=== PATIENT | female | born 1995 | race Caucasian/White ===

== ENCOUNTER 2017-10-30 15:23 | Emergency (ER) | payer OTHER, MEDICAID ==
[~2017-10-30] VITALS: Ht 162.6 cm; Wt 65.8 kg
[~2017-10-30 15:23] MED LIST: CARAFATE 1 GM TA1 GM PO; COMPAZINE10 MG PO; FLEXERIL PO; HYDROCODON-ACE1 EAC7 PO; PREVACID 24HR15 MG PO
[2017-10-30] MEDS ORDERED: PHENERGAN 25 MG25 M1 PO (15:54)
[2017-10-30 16:49] VITALS: BP 144/70
== END 2017-10-30 16:50 | disposition home or self-care (01) ==
LOC: M.ERS 15:23
DX: O26.891 Other specified pregnancy related conditions, first trimester (principal); R20.0 Anesthesia of skin; G43.909 Migraine, unspecified, not intractable, without status migrainosus; Z3A.14 14 weeks gestation of pregnancy; Z88.1 Allergy status to other antibiotic agents; Z90.49 Acquired absence of other specified parts of digestive tract

== ENCOUNTER 2017-12-10 19:26 | Emergency (ER) | payer OTHER, MEDICAID ==
[~2017-12-10] VITALS: Ht 162.6 cm; Wt 59.0 kg
[~2017-12-10 19:26] MED LIST changes: +PHENERGAN 25 MG25 M1 PO
[2017-12-10 19:54] VITALS: BP 97/56
== END 2017-12-10 19:57 | disposition home or self-care (01) ==
LOC: M.ERS 19:26
DX: M25.512 Pain in left shoulder (principal); G43.909 Migraine, unspecified, not intractable, without status migrainosus; Z90.49 Acquired absence of other specified parts of digestive tract; Z88.1 Allergy status to other antibiotic agents; Z88.8 Allergy status to other drugs, medicaments and biological substances

== ENCOUNTER 2018-01-03 12:28 | Emergency (ER) | payer OTHER, MEDICAID ==
[~2018-01-03] VITALS: Ht 162.6 cm; Wt 62.6 kg
[2018-01-03] MEDS ORDERED: DICLEGIS DR 101 EACH PO (12:40)
[2018-01-03] MEDS ORDERED: BENTYL 20 MG TA20 M1 PO (12:40)
[2018-01-03 12:56] LABS: ABSOLUTE BASOPHILS 0.1 thou/uL (0.0-0.2); ABSOLUTE EOSINOPHILS 0.2 thou/uL (0.0-0.7); ABSOLUTE LYMPHOCYTES 2.1 thou/uL (0.8-5.3); ABSOLUTE MONOCYTES 0.4 thou/uL (0.0-1.2); ABSOLUTE NEUTROPHILS 6.8 thou/uL (1.6-8.1); BASOPHILS 0.6 %; EOSINOPHILS 2.2 %; HEMATOCRIT 32.6 % (37.0-47.0); HEMOGLOBIN 10.9 gm/dL (12.0-15.0); LYMPHOCYTES 21.8 %; MCH 29.4 pg (26.0-34.0); MCHC 33.5 g/dL (28.0-37.0); MCV 87.5 fL (80.0-100.0); MONOCYTES 4.2 %; MPV 9.4 fl. (7.2-11.1); NUCLEATED RBCS 0 /100WBC; PLATELET COUNT* 277 thou/uL (150-400); POLYS 71.2 %; RBC 3.73 mil/uL (4.20-5.00); RDW-CV 14.6 % (10.5-14.5); WBC 9.6 thou/uL (4.0-11.0)
[2018-01-03 13:00] LABS: CREATININE 0.5 mg/dL (0.6-1.3); POTASSIUM 3.5 mmol/L (3.5-5.1)
[2018-01-03 13:04] LABS: ALBUMIN 2.9 g/dL (3.4-5.0); TOTAL BILIRUBIN 0.2 mg/dL (<0.1-1.0); TOTAL PROTEIN 6.8 g/dL (6.4-8.2)
[2018-01-03 13:11] LABS: URINE BILIRUBIN NEGATIVE (Negative); URINE BLOOD 2+ (Negative); URINE CLARITY CLEAR; URINE COLOR YELLOW; URINE GLUCOSE-RANDOM NEGATIVE (Negative); URINE KETONES NEGATIVE (Negative); URINE LEUKOCYTES-REFLEX NEGATIVE (Negative); URINE NITRITE-REFLEX NEGATIVE (Negative); URINE PROTEIN TRACE (Negative); URINE SPECIFIC GRAVITY 1.025 (1.005-1.030)
[2018-01-03 13:34] LABS: BACTERIA-REFLEX 1-9 Few /HPF (None Seen); SQUAMOUS 4-10 Moderate /LPF (0-3); URINE RBC >20 Many /HPF (0-2); URINE WBC-REFLEX 0-5 Rare /HPF (0-5)
[2018-01-03 13:35] LABS: CASTS None Seen /LPF (None Seen); CRYSTALS None Seen /LPF (None Seen); MUCUS 4-6 Moderate strn/LPF (None Seen)
[2018-01-03 15:23] VITALS: BP 96/58
== END 2018-01-03 15:24 | disposition home or self-care (01) ==
LOC: M.ERS 12:28
PROVIDERS: Nurse Practitioner Family
DX: O00.01 Abdominal pregnancy with intrauterine pregnancy (principal); O99.012 Anemia complicating pregnancy, second trimester; D50.9 Iron deficiency anemia, unspecified; Z88.1 Allergy status to other antibiotic agents; Z88.8 Allergy status to other drugs, medicaments and biological substances; Z88.6 Allergy status to analgesic agent; Z3A.18 18 weeks gestation of pregnancy

== ENCOUNTER 2018-02-22 10:06 | Emergency (ER) | payer OTHER, MEDICAID ==
[~2018-02-22] VITALS: Ht 165.1 cm; Wt 65.8 kg
[~2018-02-22 10:06] MED LIST changes: +BENTYL 20 MG TA20 M1 PO; +DICLEGIS DR 101 EACH PO
[2018-02-22] MEDS ORDERED: KEFLEX500 M1 PO (10:51)
[2018-02-22 10:57] VITALS: BP 111/61
== END 2018-02-22 10:58 | disposition home or self-care (01) ==
LOC: M.ERS 10:06
DX: O26.899 Other specified pregnancy related conditions, unspecified trimester (principal); S40.862A Insect bite (nonvenomous) of left upper arm, initial encounter; K08.89 Other specified disorders of teeth and supporting structures; G43.909 Migraine, unspecified, not intractable, without status migrainosus; Z88.1 Allergy status to other antibiotic agents; Z88.8 Allergy status to other drugs, medicaments and biological substances; Z88.0 Allergy status to penicillin; Z90.49 Acquired absence of other specified parts of digestive tract; Z87.19 Personal history of other diseases of the digestive system; Z3A.00 Weeks of gestation of pregnancy not specified; W57.XXXA Bitten or stung by nonvenomous insect and other nonvenomous arthropods, initial encounter; Y92.89 Other specified places as the place of occurrence of the external cause; Y93.89 Activity, other specified; Y99.8 Other external cause status